=== PATIENT | female | born 1995 | race African-American/Black ===

== ENCOUNTER 2017-10-25 12:26 | Emergency (ER) | payer MEDICAID ==
[~2017-10-25] VITALS: Ht 152.4 cm; Wt 70.8 kg
[2017-10-25 12:34] VITALS: BP 124/76
[2017-10-25 13:23] LABS: Urine Bacteria FEW /hpf (None Seen); Urine Blood Negative /uL (Negative); Urine Mucus FEW (None Seen); Urine Specific Gravity 1.024 (1.001-1.035); Urine WBC 22 /hpf (0 - 5)
== END 2017-10-25 16:21 | disposition left against medical advice (07) ==
LOC: ER 12:26
DX: R10.10 Upper abdominal pain, unspecified (principal); R11.2 Nausea with vomiting, unspecified; R19.7 Diarrhea, unspecified; Z53.21 Procedure and treatment not carried out due to patient leaving prior to being seen by health care provider
CPT/HCPCS: 81001